=== PATIENT | female | born 1990 | race Caucasian/White ===

== ENCOUNTER 2016-06-05 14:45 | Emergency (ER) | payer OTHER ==
[~2016-06-05] VITALS: Ht 162.6 cm; Wt 69.0 kg
[~2016-06-05 14:45] MED LIST: AMOX500T PO; HYDR-3533 PO; IBUP-232 PO; PROM25SU8 PO
[2016-06-05 14:55] VITALS: BP 122/74; PULSE 71; RESP 15; TEMP 98.9; O2SAT 100
[2016-06-05] MEDS ORDERED: DOCO200C PO (17:07)
--- NOTE | 2016-06-05 17:31 | PD ---
HPI Chief Complaint: Related Problem Time Seen by Provider: 17:06 Travel History International Travel<30 days: No Contact w/Intl Traveler<30days: No Traveled to known affect area: No History of Present Illness HPI The patient is a who presents emergency department for abdominal cramping and spotting in . The patient's last normal menstrual cycle was March 26, 2016. The patient does have a history of spontaneous in January 2016 after she had a Mirena IUD removed. The patient states several weeks ago she had a small amount of spotting when she described as dark, brown, with yellow discharge. She now complains of lower abdominal cramping and is intermittent, but denies any acute, active vaginal bleeding. She denies any current nausea, vomiting, dysuria, frequency, or urgency. The patient is unable to get in and see an executive secretary immediately, therefore, presents to the emergency department for further evaluation. PFSH Past Medical History Medical History: Denies Significant Hx Hx Anticoagulant Therapy: No Cardiovascular Problems: No Chemotherapy: No Cerebrovascular Accident: No Diabetes: No Diminished Hearing: No Gastrointestinal Disorders: Yes ("COLON IS CROOKED") Respiratory: No Immunizations Current: Yes Tetanus Vaccination: > 5 Years Influenza Vaccination: No ?: LMP: 03/26/2016 : 3 Para: 1 Miscarriage: 1 : 0 Ovarian Cysts: Yes (polycystic ovarian syndrome) Past Surgical History Abdominal Surgery: Yes () Section: Yes Gynecologic Surgery: Yes (polycystic ovarian syndrome) Social History Alcohol Use: No Tobacco Use: No Substance Use: No Allergies-Medications (Allergen,Severity, Reaction): Coded Allergies: No Known Allergies (Verified , 06/05/16) Reported Meds & Prescriptions Reported Meds & Active Scripts Active Reported Dha (Docosahexaenoic Acid) 200 Mg Cap 1 Tab PO DAILY Review of Systems Except as stated in HPI: all other systems reviewed are Neg General / Constitutional: No: Fever HENT: Positive: Sore Throat Gastrointestinal: No: Nausea, Vomiting, Abdominal Pain Genitourinary: Positive: Pelvic Pain, Discharge, Vaginal Bleeding, Other (as noted in the history of present illness), No: Urgency, Frequency, Dysuria, Hematuria Skin: No Rash Physical Exam Narrative GENERAL: Awake, alert, pleasant 25-year-old female who appears her stated age and is in no acute respiratory distress. SKIN: Warm and dry. HEAD: Atraumatic. Normocephalic. EYES: Pupils equal and round. No scleral icterus. No injection or drainage. ENT: No nasal bleeding or discharge. Mucous membranes pink and moist. NECK: Trachea midline. No JVD. GASTROINTESTINAL: Abdomen soft, non-tender, nondistended. No rebound tenderness. Pelvic: The exam was performed in the presence of a female nurse. External examination reveals no rashes or lesions. Speculum examination reveals thick yellow to brown discharge in the vaginal vault. Cervix is closed. Wet prep was sent to lab. MUSCULOSKELETAL: No obvious deformities. No clubbing. No cyanosis. No edema. NEUROLOGICAL: Awake and alert. No obvious cranial nerve deficits. Motor grossly within normal limits. Normal speech. PSYCHIATRIC: Appropriate mood and affect; insight and judgment normal. Data Data Last Documented VS Vital Signs Date Time Temp Pulse Resp B/P Pulse Ox O2 Delivery O2 Flow Rate FiO2 06/05/16 14:55 98.9 71 15 122/74 100 Orders Beta Hcg (Quant/Titer) (06/05/16 17:19) Complete Blood Count With Diff (06/05/16 17:19) Basic Metabolic Panel (Bmp) (06/05/16 17:19) Gc And Chlamydia Pcr (06/05/16 17:19) Wet Prep Profile (06/05/16 17:19) Urinalysis - C+S If Indicated (06/05/16 17:19) Ed Poc Ultrasound (06/05/16 17:19) Azithromycin Powd Pack (Zithromax Powd P (06/05/16 18:30) Ceftriaxone Inj (Rocephin Inj) (06/05/16 18:30) Lidocaine 1% Inj (50 Ml) (Xylocaine 1% I (06/05/16 18:30) Labs Laboratory Tests Test 06/05/16 06/05/16 06/05/16 16:30 17:50 17:55 White Blood Count 7.3 TH/MM3 Red Blood Count 4.16 MIL/MM3 Hemoglobin 12.8 GM/DL Hematocrit 37.8 % Mean Corpuscular Volume 90.9 FL Mean Corpuscular Hemoglobin 30.8 PG Mean Corpuscular Hemoglobin 33.9 % Concent Red Cell Distribution Width 12.5 % Platelet Count 208 TH/MM3 Mean Platelet Volume 9.6 FL Neutrophils (%) (Auto) 63.2 % Lymphocytes (%) (Auto) 27.3 % Monocytes (%) (Auto) 7.7 % Eosinophils (%) (Auto) 1.4 % Basophils (%) (Auto) 0.4 % Neutrophils # (Auto) 4.6 TH/MM3 Lymphocytes # (Auto) 2.0 TH/MM3 Monocytes # (Auto) 0.6 TH/MM3 Eosinophils # (Auto) 0.1 TH/MM3 Basophils # (Auto) 0.0 TH/MM3 CBC Comment DIFF FINAL Differential Comment Sodium Level 138 MEQ/L Potassium Level 3.6 MEQ/L Chloride Level 103 MEQ/L Carbon Dioxide Level 26.9 MEQ/L Anion Gap 8 MEQ/L Blood Urea Nitrogen 9 MG/DL Creatinine 0.52 MG/DL Estimat Glomerular Filtration 145 ML/MIN Rate Random Glucose 79 MG/DL Calcium Level 8.1 MG/DL Human Chorionic Gonadotropin, 18102 MIU/ML Quant Clue Cells (Wet Prep) NONE SEEN Vaginal Trichomonas (Wet Prep) NONE SEEN Vaginal Yeast (Wet Prep) NONE SEEN Urine Color YELLOW Urine Turbidity CLEAR Urine pH 6.0 Urine Specific [place] 1.026 Urine Protein NEG mg/dL Urine Glucose (UA) NEG mg/dL Urine Ketones TRACE mg/dL Urine Occult Blood NEG Urine Nitrite NEG Urine Bilirubin NEG Urine Leukocyte Esterase NEG Urine RBC 0-2 /hpf Urine WBC 0-2 /hpf Urine Squamous Epithelial 0-5 /hpf Cells Urine Bacteria NONE /hpf Microscopic Urinalysis Comment CULT NOT INDICATED MDM Medical Decision Making Medical Screen Exam Complete: Yes Emergency Medical Condition: Yes Medical Record Reviewed: Yes Interpretation(s) Laboratory Tests Test 06/05/16 06/05/16 06/05/16 16:30 17:50 17:55 White Blood Count 7.3 TH/MM3 Red Blood Count 4.16 MIL/MM3 Hemoglobin 12.8 GM/DL Hematocrit 37.8 % Mean Corpuscular Volume 90.9 FL Mean Corpuscular Hemoglobin 30.8 PG Mean Corpuscular Hemoglobin 33.9 % Concent Red Cell Distribution Width 12.5 % Platelet Count 208 TH/MM3 Mean Platelet Volume 9.6 FL Neutrophils (%) (Auto) 63.2 % Lymphocytes (%) (Auto) 27.3 % Monocytes (%) (Auto) 7.7 % Eosinophils (%) (Auto) 1.4 % Basophils (%) (Auto) 0.4 % Neutrophils # (Auto) 4.6 TH/MM3 Lymphocytes # (Auto) 2.0 TH/MM3 Monocytes # (Auto) 0.6 TH/MM3 Eosinophils # (Auto) 0.1 TH/MM3 Basophils # (Auto) 0.0 TH/MM3 CBC Comment DIFF FINAL Differential Comment Sodium Level 138 MEQ/L Potassium Level 3.6 MEQ/L Chloride Level 103 MEQ/L Carbon Dioxide Level 26.9 MEQ/L Anion Gap 8 MEQ/L Blood Urea Nitrogen 9 MG/DL Creatinine 0.52 MG/DL Estimat Glomerular Filtration 145 ML/MIN Rate Random Glucose 79 MG/DL Calcium Level 8.1 MG/DL Human Chorionic Gonadotropin, 97677 MIU/ML Quant Clue Cells (Wet Prep) NONE SEEN Vaginal Trichomonas (Wet Prep) NONE SEEN Vaginal Yeast (Wet Prep) NONE SEEN Urine Color YELLOW Urine Turbidity CLEAR Urine pH 6.0 Urine Specific [place] 1.026 Urine Protein NEG mg/dL Urine Glucose (UA) NEG mg/dL Urine Ketones TRACE mg/dL Urine Occult Blood NEG Urine Nitrite NEG Urine Bilirubin NEG Urine Leukocyte Esterase NEG Urine RBC 0-2 /hpf Urine WBC 0-2 /hpf Urine Squamous Epithelial 0-5 /hpf Cells Urine Bacteria NONE /hpf Microscopic Urinalysis Comment CULT NOT INDICATED Differential Diagnosis Differential diagnosis includes , threatened AB, ectopic , vaginitis, cervicitis, PID, UTI. Narrative Course IV was established, labs are drawn and sent, and the patient was placed on cardiac telemetry monitoring and continuous pulse oximetry monitoring. Bedside ultrasound was performed which reveals IUP with positive heart tones. A pelvic exam was completed in the presence of a female nurse. Wet prep and UA were sent to lab. The patient's blood type on EMR from January 18, 2016 was O + positive, therefore, no indication for RhoGAM. UA is negative. Wet prep is negative. The patient was covered for gonorrhea/chlamydia with Rocephin and Zithromax. Patient is advised to follow with Dr. Christianson as scheduled. She is also advised to take a vitamin daily and return if symptoms worsen or progress. Procedures Procedure Narrative A bedside ultrasound was performed with a curvilinear probe which reveals an IUP with positive heart tones. The patient tolerated the procedure without difficulty and there was no obvious copy patient. Diagnosis Primary Impression: Qualified Code: Z33.1 - , unspecified gestational age Additional Impression: Vaginal discharge during Qualified Code: O26.891 - Vaginal discharge during , first trimester Patient Instructions: General Instructions Additional Instructions: Please provide the patient a copy of labs at discharge. Work excuse for today. Take a vitamin daily. Follow-up with your apartment leasing specialist as scheduled. Return if symptoms worsen or progress. Med/Other Pt SpecificInfo: No Change to Meds Disposition: 01 DISCHARGE HOME Condition: Stable Cristhian Cooper MD Jun 05, 2016 17:31
[2016-06-05 17:42] LABS: AUTOMATED NEUTROPHIL # 4.6 TH/MM3 (1.8-7.7); BASOPHIL % 0.4 % (0.0-2.0); EOSINOPHIL # 0.1 TH/MM3 (0-0.4); EOSINOPHIL % 1.4 % (0.0-4.0); HEMATOCRIT 37.8 % (35.0-46.0); HEMO FLAGS DIFF FINAL; LYMPH % 27.3 % (9.0-44.0); MEAN CELL VOLUME 90.9 FL (80.0-100.0); MEAN CORPUSCULAR HEMOGLOBIN 30.8 PG (27.0-34.0); MEAN CORPUSCULAR HGB CONC 33.9 % (32.0-36.0); MONO % 7.7 % (0.0-8.0); NEUT % 63.2 % (16.0-70.0); PLATELET COUNT 208 TH/MM3 (150-450); RED BLOOD COUNT 4.16 MIL/MM3 (4.00-5.30); RED CELL DISTRIBUTION WIDTH 12.5 % (11.6-17.2); WHITE BLOOD COUNT 7.3 TH/MM3 (4.0-11.0)
[2016-06-05 17:49] LABS: POTASSIUM 3.6 MEQ/L (3.5-5.1)
[2016-06-05 17:52] LABS: BICARBONATE 26.9 MEQ/L (21.0-32.0)
[2016-06-05 18:10] LABS: BLOOD, URINE NEG (NEG); GLUCOSE,URINE NEG (NEG); KETONE, URINE TRACE mg/dL (NEG); NITRITE,URINE NEG (NEG)
[2016-06-05 18:19] LABS: RBC, URINE 0-2 /hpf (0-3); SQUAMOUS EPITHELIAL CELL URINE 0-5 /hpf (0-5); URINE COLOR YELLOW (YELLW/STRAW); WBC, URINE 0-2 /hpf (0-5)
[2016-06-05 18:20] LABS: COMMENT (UR) CULT NOT INDICATED; CULTURE IF INDICATED CULT NOT INDICATED
[2016-06-05] MEDS ORDERED: AZITHROMYCIN PWD FOR SUSP 1 GM PACKET PO ONE (18:30)
[2016-06-05] MEDS ORDERED: cefTRIAXone 250 MG VIAL IM ONE (18:30)
[2016-06-05] MEDS ORDERED: LIDOCAINE HCL 1% 50 ML VIAL IM ONE (18:30)
[2016-06-05 19:27] VITALS: BP_SYST 122
[2016-06-05 23:35] LABS: CHLAMYDIA PCR NOT DETECTED (NOT DETECT); NEISSERIA PCR NOT DETECTED (NOT DETECT)
== END 2016-06-05 19:25 | disposition home or self-care (01) ==
LOC: PHED 14:45
DX: O26.891 Other specified pregnancy related conditions, first trimester (principal); N89.8 Other specified noninflammatory disorders of vagina; Z3A.00 Weeks of gestation of pregnancy not specified
CPT/HCPCS: 80048; 81001; 84702; 85025; 87210; 87491; 87591; 96372; 99284; J0696

== ENCOUNTER 2017-01-01 17:44 | Inpatient (IN) | payer OTHER ==
[~2017-01-01 17:44] MED LIST changes: -AMOX500T PO; +DOCO200C PO; -HYDR-3533 PO; -IBUP-232 PO; -PROM25SU8 PO
[2017-01-01] MEDS: LACTATED RINGER'S 1000 ML INJ 1,000 ML IV SCH ×2 (18:30→23:12)
[2017-01-01 18:42] LABS: AUTOMATED NEUTROPHIL # 6.1 TH/MM3 (1.8-7.7); BASOPHIL % 0.3 % (0.0-2.0); EOSINOPHIL % 0.4 % (0.0-4.0); HEMATOCRIT 30.6 % (35.0-46.0); LYMPH % 17.3 % (9.0-44.0); LYMPHOCYTE # 1.5 TH/MM3 (1.0-4.8); MEAN CELL VOLUME 88.8 FL (80.0-100.0); MEAN CORPUSCULAR HEMOGLOBIN 30.3 PG (27.0-34.0); MEAN CORPUSCULAR HGB CONC 34.1 % (32.0-36.0); MONO % 8.9 % (0.0-8.0); NEUT % 73.1 % (16.0-70.0); PLATELET COUNT 150 TH/MM3 (150-450); RED BLOOD COUNT 3.45 MIL/MM3 (4.00-5.30); WHITE BLOOD COUNT 8.4 TH/MM3 (4.0-11.0)
[2017-01-01] MEDS ORDERED: LACTATED RINGER'S 1000 ML INJ 1,000 ML IV PRN (18:52)
[2017-01-01 18:56] LABS: HEMO FLAGS AUTO DIFF
[2017-01-01 18:59] LABS: BACTERIA, URINE MANY /hpf; BLOOD, URINE NEG (NEG); COMMENT (UR) CULTURE INDICATED; CULTURE IF INDICATED CULTURE INDICATED; GLUCOSE,URINE NEG (NEG); KETONE, URINE NEG (NEG); NITRITE,URINE NEG (NEG); PH, URINE 6.5 (5.0-8.5); SQUAMOUS EPITHELIAL CELL URINE 6 /hpf (0-5); URINE COLOR LIGHT-YELLOW (YELLW/STRAW)
[2017-01-01 19:00] VITALS: TEMP 98.5
[2017-01-01] MEDS ORDERED: LIDOCAINE HCL 1% 50 ML VIAL INFIL PRN (19:00)
[2017-01-01] MEDS ORDERED: CITRIC ACID-SODIUM CITRATE LIQ 30 ML UDC PO SCH (19:00)
[2017-01-01] MEDS ORDERED: MINERAL OIL 10 ML VIAL TOPICAL PRN (19:00)
[2017-01-01] MEDS ORDERED: OXYTOCIN 30 UNITS-500ML PREMIX 500 ML IV SCH (19:00)
[2017-01-01] MEDS ORDERED: SODIUM CHLORID 0.9% 500 ML INJ 500 ML IV PRN (19:00)
[2017-01-01] MEDS ORDERED: LIDOCAINE HCL 1% 50 ML VIAL I-DERMAL PRN (19:00)
[2017-01-01] MEDS ORDERED: SODIUM CHLOR 0.9% 1000 ML INJ 1,000 ML IV PRN (19:12)
[2017-01-01 19:46] LABS: PLATELET ESTIMATE SMEAR NORMAL (NORMAL); PLATELET MORPHOLOGY ENLARGED (NORMAL); SCAN/DIFF AUTO DIFF CONFIRMED
[2017-01-01] MEDS ORDERED: OXYTOCIN 30 UNITS-500ML PREMIX 500 ML IV ONE (20:00)
[2017-01-01 20:29] VITALS: BP 145/65; PULSE 79
[2017-01-01 20:30] VITALS: RESP 18
[2017-01-01 21:33] VITALS: BP 130/78; PULSE 58; RESP 18
[2017-01-01 22:31] VITALS: TEMP 97.6
[2017-01-02] VITALS (54 sets, daily range): BP systolic 109–145; BP diastolic 59–92; PULSE 57–85; RESP 1–18; TEMP 97.3–98.6; O2SAT 100
[2017-01-02] MEDS ORDERED: ONDANSETRON HCL 4 MG/2 ML VIAL IV PUSH PRN ×2 (01:15→15:30)
[2017-01-02] MEDS ORDERED: fentaNYL 2MCG-BUPIV 0.125% INJ 100 ML ONE (08:07)
[2017-01-02] MEDS ORDERED: ePHEDrine/NS 25 MG/5 ML SYR ONE (08:07)
[2017-01-02] MEDS ORDERED: ePHEDrine/NS 25 MG/5 ML SYR IV PRN (09:45)
[2017-01-02] MEDS ORDERED: fentaNYL 2MCG-BUPIV 0.125% 100 ML EPIDURAL SCH (09:45)
[2017-01-02] MEDS ORDERED: DO NOT ADMINISTER ANTICOAGULANTS PRN (09:45)
[2017-01-02] MEDS ORDERED: NO SYSTEM NARCOTICS PRN (09:45)
--- NOTE | 2017-01-02 10:24 | PD.LABORPN ---
Subjective Subjective comfortable with epidural, pitocin was up to 20, now restarted at 2mu, IUPC in place Objective Vital Signs Vital Signs Date Time Temp Pulse Resp B/P (MAP) Pulse Ox O2 Delivery O2 Flow Rate FiO2 01/02/17 10:06 18 01/02/17 10:00 59 115/59 (77) 01/02/17 09:45 57 109/59 (76) 01/02/17 09:30 122/71 (88) 01/02/17 09:30 63 01/02/17 09:21 97.7 18 01/02/17 09:10 58 125/81 (96) 01/02/17 09:06 70 124/76 (92) 01/02/17 09:00 71 01/02/17 08:55 78 01/02/17 08:55 73 132/80 (97) 01/02/17 08:50 78 01/02/17 08:50 69 125/75 (92) 01/02/17 08:46 67 132/69 (90) 01/02/17 08:45 65 01/02/17 08:40 63 131/70 (90) 01/02/17 08:40 71 01/02/17 08:39 18 01/02/17 08:35 78 01/02/17 08:31 70 127/81 (96) 01/02/17 08:30 74 01/02/17 08:25 83 145/84 (104) 01/02/17 08:25 76 01/02/17 07:15 74 138/92 (107) 01/02/17 07:12 18 01/02/17 07:04 97.7 01/02/17 05:58 18 01/02/17 05:15 18 01/02/17 05:08 63 124/80 (95) 01/02/17 03:33 97.8 01/02/17 03:00 97.8 01/02/17 02:53 18 01/02/17 02:52 57 129/78 (95) Objective Pelvic Exam: Cervix: [-] Dilatation: [-] 3 Effacement: [-] Station: [-] -2 Presentation: [-] Membranes: [intact or ruptured] srom clear Uterine Contractions: [-] irreg q5-6min FHT's: Category: [-] 1 Baseline: [-] Reactive: [-] R Variability: [-] Decels: [-] Weeks Gestation: 40 Gest Age Assessed Date: Jan 02, 2017 Gest Age Assessed Time: 09:30 Pt started active labor?: Yes Active labor start date: Jan 02, 2017 Active labor start time: 09:30 Medical induction of labor?: Yes Medical induction start date: Jan 01, 2017 Medical induction start time: 18:00 Artificial rupture of membrane: No Vannesa Kathleen MD Jan 02, 2017 10:24
[2017-01-02] MEDS: LACTATED RINGER'S 1000 ML INJ 1,000 ML IV SCH ×2 (11:33→13:42)
[2017-01-02] MEDS ORDERED: OXYTOCIN 10 UNIT/ML AMP ONE (14:24)
--- NOTE | 2017-01-02 15:21 | PD.OB.DELI ---
Procedure Note Section Procedure Pre Op Diagnosis: (1) Post Op Diagnosis: (1) S/P repeat low transverse Performed by Vannesa Kathleen Procedure: Repeat Low Transverse Sec Indication for delivery: Other (pain through epidural, suspect uterine rupture) Previous condition: Other (previous x1) Informed consent obtained: For procedure Confirmed correct: Time-out taken Anesthesia: Epidural Urinary catheter: Inserted using sterile technique Sterile preparation: Duraprep Position: Supine with wedge to right side Operative Features Skin Incision: Pfannenstiel Uterine Incision: Low transverse w/knife / blunt ext Membranes Ruptured: Previously Presentation: Vertex Delivery date: Jan 02, 2017 Delivery time: 15:20 Infant: Male One Minute : 8 Five Minute : 9 Status of infant: Viable (nuchal cord x2) Placenta delivered: Intact (bilobed, villamentous insertion) Estimated blood loss: 650cc Procedure tolerated: Well Maternal Condition: Stable Condition: Stable (see dictation) Vannesa Kathleen MD Jan 02, 2017 15:21
[2017-01-02] MEDS ORDERED: MORPHINE SULFATE PF 5 MG/10 ML VIAL ONE (15:25)
[2017-01-02] MEDS ORDERED: oxyCODONE/ACETAMINOPHEN 5 MG/325 MG TAB PO PRN (15:30)
[2017-01-02] MEDS ORDERED: ACETAMINOPHEN 1000 MG/100 ML VIAL IV ONE ×2 (15:30→17:45)
[2017-01-02] MEDS ORDERED: DOCUSATE SODIUM 50 MG/SENNA 8.6 MG TAB PO PRN (15:30)
[2017-01-02] MEDS ORDERED: SIMETHICONE 80 MG CHEWABLE TAB PO PRN (15:30)
[2017-01-02] MEDS ORDERED: SODIUM CHLORIDE 0.9% FLUSH 10 ML FLUSH IV FLUSH PRN (15:30)
[2017-01-02] MEDS ORDERED: OXYTOCIN 30 UNITS-500ML PREMIX 500 ML IV ONE (16:30)
[2017-01-02] MEDS ORDERED: EPIDURAL-DIPHENHYDRAMINE HCL 50 MG CAP PO PRN (17:45)
[2017-01-02] MEDS ORDERED: EPIDURAL-NALOXONE HCL 0.4 MG/ML AMP IV PRN (17:45)
[2017-01-02] MEDS ORDERED: EPIDURAL-DIPHENHYDRAMINE HCL 50 MG/ML VIAL IV PUSH PRN (17:45)
[2017-01-02] MEDS ORDERED: EPIDURAL-NO SYSTEMIC NARCOTICS PRN (17:45)
[2017-01-02] MEDS ORDERED: EPIDURAL-DO NOT ADMINISTER ANTICOAGULANTS PRN (17:45)
[2017-01-02] MEDS ORDERED: LACTATED RINGER'S 1000 ML INJ 1,000 ML IV SCH (20:21)
[2017-01-02] MEDS ORDERED: SODIUM CHLORIDE 0.9% FLUSH 10 ML FLUSH IV FLUSH SCH (21:00)
[2017-01-02] MEDS ORDERED: ZOLPIDEM TARTRATE 5 MG TAB PO PRN (21:00)
[2017-01-03 01:00] VITALS: BP 127/78; PULSE 73; RESP 18; TEMP 98.2
[2017-01-03] MEDS: IBUPROFEN 600 MG TAB PO PRN ×3 (01:21→19:00)
[2017-01-03] MEDS ORDERED: OXYTOCIN 30 UNITS-500ML PREMIX 500 ML IV PRN (01:30)
[2017-01-03 04:57] VITALS: BP 132/79; PULSE 76; RESP 20; TEMP 97.9
[2017-01-03 06:08] LABS: AUTOMATED NEUTROPHIL # 7.4 TH/MM3 (1.8-7.7); BASOPHIL % 0.2 % (0.0-2.0); EOSINOPHIL % 0.4 % (0.0-4.0); HEMATOCRIT 28.1 % (35.0-46.0); HEMO FLAGS DIFF FINAL; LYMPH % 15.1 % (9.0-44.0); LYMPHOCYTE # 1.5 TH/MM3 (1.0-4.8); MEAN CORPUSCULAR HEMOGLOBIN 30.4 PG (27.0-34.0); MEAN CORPUSCULAR HGB CONC 33.8 % (32.0-36.0); MONO % 8.2 % (0.0-8.0); NEUT % 76.1 % (16.0-70.0); PLATELET COUNT 131 TH/MM3 (150-450); RED BLOOD COUNT 3.13 MIL/MM3 (4.00-5.30); WHITE BLOOD COUNT 9.8 TH/MM3 (4.0-11.0)
[2017-01-03 09:00] VITALS: BP 120/81; PULSE 59; RESP 16; TEMP 97.7
--- NOTE | 2017-01-03 09:00 | HHI.OB ---
Subjective Post Operative Day: 1 Remarks doing well, voiding, OOB already Objective Vitals/I&O Vital Signs Date Time Temp Pulse Resp B/P (MAP) Pulse Ox O2 Delivery O2 Flow Rate FiO2 01/03/17 04:57 97.9 76 20 132/79 (96) 01/03/17 02:21 16 01/03/17 01:00 98.2 73 18 127/78 (94) 01/02/17 20:47 78 129/78 (95) 01/02/17 20:44 18 01/02/17 20:42 98.6 01/02/17 16:55 98.4 74 18 126/76 (93) 01/02/17 16:20 138/76 (96) 01/02/17 16:19 97.8 01/02/17 16:19 97.8 01/02/17 16:18 83 18 100 01/02/17 16:02 136/63 (87) 01/02/17 16:01 81 18 100 01/02/17 15:47 85 18 129/72 (91) 100 01/02/17 15:31 100 01/02/17 15:29 97.5 83 18 123/62 (82) 01/02/17 15:29 97.5 01/02/17 14:15 84 100 01/02/17 14:04 97.3 01/02/17 13:37 18 01/02/17 13:30 63 126/82 (97) 01/02/17 13:23 59 132/76 (94) 01/02/17 13:00 62 142/79 (100) 01/02/17 12:45 18 01/02/17 12:45 1 01/02/17 12:31 61 128/77 (94) 01/02/17 12:01 18 01/02/17 12:00 61 139/85 (103) 01/02/17 11:30 60 130/69 (89) 01/02/17 11:01 97.7 01/02/17 11:01 59 18 131/78 (95) 01/02/17 10:30 61 117/73 (88) 01/02/17 10:06 18 01/02/17 10:00 59 115/59 (77) 01/02/17 09:45 57 109/59 (76) 01/02/17 09:30 122/71 (88) 01/02/17 09:30 63 01/02/17 09:21 97.7 18 01/02/17 09:10 58 125/81 (96) 01/02/17 09:06 70 124/76 (92) 01/02/17 09:00 71 Result Diagram: 01/03/17 0544 Objective Remarks GENERAL: Well-nourished, well-developed patient. CARDIOVASCULAR: Regular rate and rhythm without murmurs, gallops, or rubs. RESPIRATORY: Breath sounds equal bilaterally. No accessory muscle use. ABDOMEN/GI: Abdomen soft, non-tender, bowel sounds present. Incision: dressing Clean, dry and intact. Fundus: Firm, non-tender at umbilicus. GENITOURINARY: Light to moderate bleeding. EXTREMITIES: No cyanosis or edema, non-tender, without signs of DVT. Medications and IVs Current Medications Medications (Trade) Dose Ordered Sig/Yennifer Route Start Time Stop Time Status Last Admin Lactated Ringer's 1,000 ml @ 100 mls/hr Q10H IV 01/02/17 20:21 01/03/17 16:20 01/03/17 01:25 Oxytocin 500 ml @ 100 mls/hr UNSCH X1 PRN IV 01/03/17 01:30 01/04/17 01:29 (NS Flush) 2 ml BID IV FLUSH 01/02/17 21:00 (NS Flush) 2 ml UNSCH PRN IV FLUSH 01/02/17 15:30 (Mylicon Chew) 80 mg QID PRN PO 01/02/17 15:30 (Motrin) 600 mg Q6H PRN PO 01/02/17 15:30 01/03/17 01:21 (Percocet 5-325 Mg) 1 tab Q4H PRN PO 01/02/17 15:30 (Percocet 5-325 Mg) 2 tab Q4H PRN PO 01/02/17 15:30 01/03/17 05:26 (Lizzeth-Colace) 2 tab Q12H PRN PO 01/02/17 15:30 (Ambien) 5 mg HS PRN PO 01/02/17 21:00 (M-M-R Ii Inj) 0.5 ml ONCE ONCE SQ 01/03/17 16:00 01/03/17 16:01 (Boostrix Inj) 0.5 ml ONCE ONCE IM 01/03/17 16:00 01/03/17 16:01 01/03/17 06:23 (Zofran Inj) 4 mg Q6H PRN IV PUSH 01/02/17 15:30 Miscellaneous Information NO SYSTEMIC NARCOTICS TO BE GIVEN FO... UNSCH PRN .XX 01/02/17 17:45 01/03/17 15:15 (Narcan Inj) 0.4 mg UNSCH PRN IV 01/02/17 17:45 01/03/17 15:15 (Benadryl Inj) 25 mg Q6H PRN IV PUSH 01/02/17 17:45 01/03/17 15:15 01/02/17 18:39 (Benadryl) 50 mg Q6H PRN PO 01/02/17 17:45 01/03/17 15:15 01/03/17 01:21 Miscellaneous Information ALL NURSING DEPARTMENTS UNSCH PRN .XX 01/02/17 17:45 01/03/17 15:15 Assessment/Plan Problem List: (1) Ruptured uterus during labor, delivered ICD Codes: O71.1 - Rupture of uterus during labor Status: Acute (2) S/P repeat low transverse ICD Codes: Z98.891 - History of uterine scar from previous surgery Status: Acute Assessment and Plan POD #1 s/p repeat LSTC due to distress, suspected and confirmed uterine rupture during labor, advised pt against in future, pt counselled remove cristela POD#3 Discharge Planning POD #3 Attending Attestation pt seen by Vannesa Mayen MD Jan 03, 2017 09:00
[2017-01-03] MEDS: oxyCODONE/ACETAMINOPHEN 5 MG/325 MG TAB PO PRN ×3 (14:08→23:45)
[2017-01-03] MEDS ORDERED: DIPHTH/TETANUS/ACEL PERTUSSIS (BOOSTER) 0.5 ML VIAL/PFS IM ONE (16:00)
[2017-01-03] MEDS ORDERED: MEASLES, MUMPS, RUBELLA VACCINE 0.5 ML VIAL SQ ONE (16:00)
[2017-01-03 21:50] VITALS: BP 116/86; PULSE 72; RESP 18; TEMP 97.9
[2017-01-03 23:41] VITALS: BP 147/84; PULSE 93; TEMP 97.9
[2017-01-04 07:40] VITALS: BP 104/71; PULSE 68; RESP 18; TEMP 97.5
--- NOTE | 2017-01-04 07:41 | MH ---
cc: BART COLMENARES DATE OF ADMISSION: 01/01/2017 ADMITTING DIAGNOSIS: She is being admitted 01/01/2017 for induction of the labor. She is 25-year-old, 3, para 1-0-1-1 intrauterine at 40 weeks and 2 days, previous section, desires trial of labor. care has been with [place] FI[facility] ADMINISTRATIVE ASSISTANT uncomplicated. She had a bilobed placenta seen on ultrasound, a group B strep is negative. PAST OBSTETRICAL HISTORY: OB history is significant for one at 39 weeks 7 pounds 8 ounces and one miscarriage. GYNECOLOGIC HISTORY She had low grade DANIEL on her Pap smear in June 2016 PAST MEDICAL HISTORY She denies hypertension, diabetes or asthma. PAST SURGICAL HISTORY She denies. SOCIAL HISTORY She denies toxic habits. MEDICATIONS She takes Vitamins. ALLERGIES NO KNOWN DRUG ALLERGIES PHYSICAL EXAMINATION: VITAL SIGNS: physical exam her vital signs are stable. She is afebrile. Blood pressure is 112/60. She is 187 pounds. HEAD/HEART/CHEST/LUNG: Her chest when exams within normal limits. ABDOMEN: The abdomen is soft, nontender, gravid. PELVIS: Pelvic exam is 2 cm dilated, soft, posterior -2, -3 station. ASSESSMENT/PLAN She is 25-year-old 3, para 1-0-1-1 intrauterine at 40 weeks and 2 days, previous , desires trial of labor. Risks, benefits, alternatives of Pitocin augmentation have been explained, all of her questions have been answered and consent signed. MD WILLIE Marr/jeremy /1:54 PM /7:35 AM
[2017-01-04] MEDS: IBUPROFEN 600 MG TAB PO PRN ×3 (07:46→22:31)
[2017-01-04] MEDS: oxyCODONE/ACETAMINOPHEN 5 MG/325 MG TAB PO PRN ×3 (07:46→22:31)
--- NOTE | 2017-01-04 11:28 | HHI.OB ---
Subjective Post Operative Day: 2 Objective Vitals/I&O Vital Signs Date Time Temp Pulse Resp B/P (MAP) Pulse Ox O2 Delivery O2 Flow Rate FiO2 01/04/17 07:40 104/71 (82) 01/04/17 07:40 97.5 68 18 01/03/17 23:41 97.9 01/03/17 23:41 93 147/84 (105) 01/03/17 21:50 97.9 72 18 116/86 (96) Result Diagram: 01/03/17 0544 Objective Remarks GENERAL: Well-nourished, well-developed patient. CARDIOVASCULAR: Regular rate and rhythm without murmurs, gallops, or rubs. RESPIRATORY: Breath sounds equal bilaterally. No accessory muscle use. ABDOMEN/GI: Abdomen soft, non-tender, bowel sounds present. Incision: incision Clean, dry and intact. cristela Fundus: Firm, non-tender at umbilicus. GENITOURINARY: Light to moderate bleeding. EXTREMITIES: No cyanosis or edema, non-tender, without signs of DVT. Medications and IVs Current Medications Medications (Trade) Dose Ordered Sig/Yennifer Route Start Time Stop Time Status Last Admin (NS Flush) 2 ml BID IV FLUSH 01/02/17 21:00 (NS Flush) 2 ml UNSCH PRN IV FLUSH 01/02/17 15:30 (Mylicon Chew) 80 mg QID PRN PO 01/02/17 15:30 (Motrin) 600 mg Q6H PRN PO 01/02/17 15:30 01/04/17 07:46 (Percocet 5-325 Mg) 1 tab Q4H PRN PO 01/02/17 15:30 01/04/17 07:46 (Percocet 5-325 Mg) 2 tab Q4H PRN PO 01/02/17 15:30 01/03/17 05:26 (Lizzeth-Colace) 2 tab Q12H PRN PO 01/02/17 15:30 (Ambien) 5 mg HS PRN PO 01/02/17 21:00 (Zofran Inj) 4 mg Q6H PRN IV PUSH 01/02/17 15:30 Assessment/Plan Problem List: (1) Ruptured uterus during labor, delivered ICD Codes: O71.1 - Rupture of uterus during labor Status: Acute (2) S/P repeat low transverse ICD Codes: Z98.891 - History of uterine scar from previous surgery Status: Acute Assessment and Plan POD #2 s/p repeat LSTC due to distress, suspected and confirmed uterine rupture during labor, advised pt against in future, pt counselled again today remove cristela POD#3, d/w pt stay until tmrw Wednesday Discharge Planning POD #3 Flavia Schmidt MD Jan 04, 2017 11:27
[2017-01-04 20:00] VITALS: BP 124/78; PULSE 63; RESP 20; TEMP 98
[2017-01-05] MEDS ORDERED: OXYC1TAB63 PO (05:27)
[2017-01-05] MEDS ORDERED: IBUP-232 PO (05:27)
[2017-01-05] MEDS ORDERED: SENN1TAB PO (05:27)
[2017-01-05] MEDS: oxyCODONE/ACETAMINOPHEN 5 MG/325 MG TAB PO PRN (07:05)
[2017-01-05] MEDS: IBUPROFEN 600 MG TAB PO PRN (07:06)
--- NOTE | 2017-01-05 08:04 | MP ---
cc: BART KATHLEEN DATE OF SURGERY 01/02/2017 PREOPERATIVE DIAGNOSIS Intrauterine at 40+ weeks, previous section, desired trial of labor, pain through epidural, bloody amnioinfusion fluid, distress, repetitive variable decelerations, suspect uterine rupture. POSTOPERATIVE DIAGNOSIS Intrauterine at 40+ weeks, previous section, desired trial of labor, pain through epidural, bloody amnioinfusion fluid, distress, repetitive variable decelerations, suspect uterine rupture. PROCEDURE Repeat lower segment transverse section via Pfannenstiel skin incision. SURGEON Dr. Kathleen ANESTHESIA Epidural FLUIDS 2000 cc crystalloid ESTIMATED BLOOD LOSS 650 cc URINE OUTPUT 275 cc clear yellow at the end of the procedure. FINDINGS A live male was delivered vertex presentation, 's 8 at one minute, 9 at five minutes. weight was 7 pounds 10 ounces. Upon entry of the abdominal cavity, the lower uterine segment was completely dehisced. The only tissue intact was the vesicouterine peritoneum. PROCEDURE The patient was taken to the operating room where epidural anesthesia was found to be adequate. She was prepped and draped in the normal sterile fashion in the dorsal supine position. A Pfannenstiel skin incision was made with a scalpel and carried down to the underlying fascia. The fascia was nicked in the midline. The incision was extended laterally with curved Roberson scissors. Attention was turned to the inferior aspect of the incision which was grasped with Rubin clamps, elevated and the rectus muscles dissected off sharply. Attention was turned to the superior aspect of the incision which was grasped with Rubin clamps, elevated the rectus muscles dissected off sharply. The rectus muscles were in the midline and the peritoneum was identified and entered with blunt dissection. At this point, the vesicouterine peritoneum was the only thing that was intact. The bladder blade was inserted. A single swipe with the scalpel was made over the vesicouterine peritoneum and the uterus was entered. Blood clots were evacuated. The vertex was delivered atraumatically. The nuchal cord x2 was manually reduced. The shoulders were delivered atraumatically. The cord was clamped x2 and cut. The infant was handed off to the waiting nurse. The placenta was delivered manually. It was noted to be bilobed with a velamentous cord insertion. The uterus was cleared of all clots and debris. The lower uterine segment was essentially nonexistent, but the remaining tissue was reapproximated in a running fashion with 0-Vicryl and an imbricating layer was placed to reinforce the repair. The gutters were cleared of all clots and debris. The incision was hemostatic. The peritoneum was closed with a running suture of 3-0 chromic. The fascia was closed in a running fashion with 0 Vicryl. The skin was closed with cristela. A pressure dressing was applied. The sponge, lap, needle and instrument counts were correct x3. The patient was transferred to recovery room in stable condition. MD WILLIE Marr/MARSHA /3:27 PM /7:52 AM LEONARD
--- NOTE | 2017-01-05 08:58 | HHI.OB ---
Subjective Post Operative Day: 3 Objective Vitals/I&O Vital Signs Date Time Temp Pulse Resp B/P (MAP) Pulse Ox O2 Delivery O2 Flow Rate FiO2 01/04/17 20:00 98.0 63 20 124/78 (93) Result Diagram: 01/03/17 0544 Objective Remarks GENERAL: Well-nourished, well-developed patient. CARDIOVASCULAR: Regular rate and rhythm without murmurs, gallops, or rubs. RESPIRATORY: Breath sounds equal bilaterally. No accessory muscle use. ABDOMEN/GI: Abdomen soft, non-tender, bowel sounds present. Incision: incision Clean, dry and intact. cristela Fundus: Firm, non-tender at umbilicus. GENITOURINARY: Light to moderate bleeding. EXTREMITIES: No cyanosis or edema, non-tender, without signs of DVT. Medications and IVs Current Medications Medications (Trade) Dose Ordered Sig/Yennifer Route Start Time Stop Time Status Last Admin (NS Flush) 2 ml BID IV FLUSH 01/02/17 21:00 (NS Flush) 2 ml UNSCH PRN IV FLUSH 01/02/17 15:30 (Mylicon Chew) 80 mg QID PRN PO 01/02/17 15:30 (Motrin) 600 mg Q6H PRN PO 01/02/17 15:30 01/05/17 07:06 (Percocet 5-325 Mg) 1 tab Q4H PRN PO 01/02/17 15:30 01/05/17 07:05 (Percocet 5-325 Mg) 2 tab Q4H PRN PO 01/02/17 15:30 01/03/17 05:26 (Lizzeth-Colace) 2 tab Q12H PRN PO 01/02/17 15:30 (Ambien) 5 mg HS PRN PO 01/02/17 21:00 (Zofran Inj) 4 mg Q6H PRN IV PUSH 01/02/17 15:30 Assessment/Plan Problem List: (1) Ruptured uterus during labor, delivered ICD Codes: O71.1 - Rupture of uterus during labor Status: Acute (2) S/P repeat low transverse ICD Codes: Z98.891 - History of uterine scar from previous surgery Status: Acute Assessment and Plan POD #3 s/p repeat LSTC due to distress, suspected and confirmed uterine rupture during labor, advised pt against in future, pt counselled again today remove cristela home--rto 1 week will schedule BTL begin iron Discharge Planning POD #3 Becky Christianson MD Jan 05, 2017 08:58
--- NOTE | 2017-01-05 08:59 | HHI.DCPOC ---
Discharge Care Plan Report Symptoms to Your Doctor -Temperature above 100.5 degrees -Redness, of incision or excessive or foul smelling drainage -Unusual pain or calf pain -Increased vaginal bleeding -Painful or difficulty urinating -Feelings of extreme sadness or anxiety after 2 weeks Goals to Promote Your Health * To prevent worsening of your condition and complications * To maintain your health at the optimal level Directions to Meet Your Goals Take your medications as prescribed Follow your dietary instruction Follow activity as directed Ensure plenty of rest for recovery Drink fluids for hydration Keep your appointments as scheduled Take your immunizations and boosters as scheduled If your symptoms worsen call your PCP, if no PCP go to Urgent Care Center or Emergency Room Smoking is Dangerous to Your Health. Avoid second hand smoke Call the 24-hour crisis hotline for domestic abuse at Becky Christianson MD Jan 05, 2017 08:59
[2017-01-05] MEDS ORDERED: HEMOTAB PO (09:00)
[2017-01-05 09:45] VITALS: BP 123/84; PULSE 63; RESP 18; TEMP 98.4
== END 2017-01-05 11:19 | disposition home or self-care (01) | DRG 765 ==
LOC: H2EA 17:44 → H1EA 01-02 16:43
PROVIDERS: ADMIT Obstetrics & Gynecology; ATTEND Obstetrics & Gynecology
PROC: 3E033VJ Introduction of Other Hormone into Peripheral Vein, Percutaneous Approach (ICD-10-PCS; 2017-01-01)
PROC: 10D00Z1 Extraction of Products of Conception, Low, Open Approach (ICD-10-PCS; principal; 2017-01-02)
PROC: 00HU33Z Insertion of Infusion Device into Spinal Canal, Percutaneous Approach (ICD-10-PCS; 2017-01-02)
PROC: 3E0R3CZ (ICD-10-PCS; 2017-01-02)
DX: O34.211 Maternal care for low transverse scar from previous cesarean delivery (principal); O71.1 Rupture of uterus during labor; O43.193 Other malformation of placenta, third trimester; O76 Abnormality in fetal heart rate and rhythm complicating labor and delivery; O77.9 Labor and delivery complicated by fetal stress, unspecified; O69.81X0 Labor and delivery complicated by cord around neck, without compression, not applicable or unspecified; Z37.0 Single live birth; Z3A.40 40 weeks gestation of pregnancy
CPT/HCPCS: 59025; 76815; 81001; 85025; 86900; 86901; 87086; 88307; 90715; J1200; J2274; J2405; J2590; J3010; J7030; J7120; Q0163

== ENCOUNTER 2017-10-14 22:52 | Emergency (ER) | payer OTHER ==
[~2017-10-14] VITALS: Ht 165.1 cm; Wt 69.0 kg
[~2017-10-14 22:52] MED LIST changes: +HEMOTAB PO; +IBUP-232 PO; +OXYC1TAB63 PO; +SENN1TAB PO
[2017-10-14 22:55] VITALS: BP 136/87; PULSE 114; RESP 20; TEMP 99.6; O2SAT 97
--- NOTE | 2017-10-14 23:24 | PD ---
HPI Chief Complaint: Cold / Flu Symptoms Time Seen by Provider: 23:12 Travel History International Travel<30 days: No Contact w/Intl Traveler<30days: No Traveled to known affect area: No History of Present Illness HPI 27 years old female complains of persistent cough. Patient states the cough started 2 weeks ago. Patient states her cough is productive. Patient denies any chest pain or shortness of breath. Patient denies any nausea vomiting diarrhea. PFSH Past Medical History Hx Anticoagulant Therapy: No Cardiovascular Problems: No Chemotherapy: No Cerebrovascular Accident: No Diabetes: No Diminished Hearing: No Gastrointestinal Disorders: Yes ("COLON IS CROOKED") Reproductive: Yes ("UTERINE RUPTURE WITH 2ND " 2016) Respiratory: No Immunizations Current: Yes Influenza Vaccination: No ?: Not LMP: 10/03/17 : 3 Para: 1 Miscarriage: 1 : 0 Ovarian Cysts: Yes (polycystic ovarian syndrome) Past Surgical History Abdominal Surgery: Yes () Section: Yes Gynecologic Surgery: Yes (polycystic ovarian syndrome) Social History Alcohol Use: No Tobacco Use: No Substance Use: No Allergies-Medications (Allergen,Severity, Reaction): Coded Allergies: No Known Allergies (Verified Adverse Reaction, Unknown, 10/14/17) Reported Meds & Prescriptions Reported Meds & Active Scripts Active No Active Prescriptions or Reported Medications Review of Systems General / Constitutional: No: Fever Eyes: No: Visual changes HENT: No: Headaches Cardiovascular: No: Chest Pain or Discomfort Respiratory: Positive: Cough, No: Shortness of Breath Gastrointestinal: No: Abdominal Pain Genitourinary: No: Dysuria Musculoskeletal: No: Pain Skin: No Rash Neurologic: No: Weakness Psychiatric: No: Depression Endocrine: No: Polydipsia Hematologic/Lymphatic: No: Easy Bruising Physical Exam Narrative GENERAL: Well-nourished, well-developed patient. SKIN: Focused skin assessment warm/dry. HEAD: Normocephalic. EYES: No scleral icterus. No injection or drainage. NECK: Supple, trachea midline. No JVD or lymphadenopathy. CARDIOVASCULAR: Regular rate and rhythm without murmurs, gallops, or rubs. RESPIRATORY: Breath sounds equal bilaterally. No accessory muscle use. GASTROINTESTINAL: Abdomen soft, non-tender, nondistended. MUSCULOSKELETAL: No cyanosis, or edema. BACK: Nontender without obvious deformity. No CVA tenderness. Neurologic exam normal. Data Data Last Documented VS Vital Signs Date Time Temp Pulse Resp B/P (MAP) Pulse Ox O2 Delivery O2 Flow Rate FiO2 10/14/17 23:12 99 99 Room Air 10/14/17 22:55 99.6 20 136/87 (103) Orders Orders Chest, Single Ap (10/14/17 23:20) MDM Medical Decision Making Medical Screen Exam Complete: Yes Emergency Medical Condition: Yes Interpretation(s) Chest x-ray shows no acute consolidation. Differential Diagnosis Differential diagnosis including URI, bronchitis, pneumonia. Narrative Course 27 years old female with persistent cough for 2 weeks. Diagnosis Primary Impression: Bronchitis Patient Instructions: General Instructions Additional Instructions: Take medications as directed. Tylenol for fever. Follow-up with personal physician. Return if worse. Med/Other Pt SpecificInfo: Prescription(s) given Scripts [Phenergan W Codein] No Conflict Check 10 ML PO Q8HR for Cough, #120 Prov: Randell Pena MD 10/14/17 Azithromycin (Zithromax Z-Chandrakant) 250 Mg Dspk 250 MG PO DIRECTED for Infection, #1 DSPK 0 Refills 500 MG (2 tabs) day 1, then 1 tab days 2-5. Prov: Randell Pena MD 10/14/17 Disposition: 01 DISCHARGE HOME Condition: Stable Randell Pena MD Oct 14, 2017 23:24
[2017-10-14] MEDS ORDERED: ZITHTAB PO (23:31)
[2017-10-14] MEDS ORDERED: PHENERGAN W CODEIN PO (23:31)
--- NOTE | 2017-10-14 23:41 | RADRPT ---
EXAM DATE: 10/14/2017 11:32 PM EDT AGE/SEX: 27 years / Female INDICATIONS: Cough, chest congestion for 2 weeks CLINICAL DATA: This is the patient's initial encounter. Patient reports that signs and symptoms have been present for 2 weeks and indicates a pain score of 0/10. MEDICAL/SURGICAL HISTORY: None. None. COMPARISON: No prior exams available for comparison. FINDINGS: A single AP view of the chest demonstrates the lungs to be symmetrically aerated without evidence of mass, infiltrate or effusion. The cardiomediastinal contours are unremarkable. Osseous structures a re intact. CONCLUSION: No active disease. Electronically signed by: Oskar Eaton MD 10/14/2017 11:40 PM EDT
[2017-10-14] MEDS ORDERED: AZITHROMYCIN 250 MG TAB PO ONE (23:45)
== END 2017-10-14 23:47 | disposition home or self-care (01) ==
LOC: PHED 22:52
DX: J40 Bronchitis, not specified as acute or chronic (principal)
CPT/HCPCS: 71045; 99283